=== PATIENT | male | born 1960 | race African-American/Black ===

== ENCOUNTER 2016-08-14 13:49 | Emergency (ER) | payer SELFPAY ==
[~2016-08-14] VITALS: Ht 180.3 cm; Wt 106.0 kg
[2016-08-14] MEDS ORDERED: FLEXERIL10 MG PO (14:40)
[2016-08-14] MEDS ORDERED: CLEOCIN300 MG PO (17:00)
[2016-08-14 17:44] VITALS: BP 151/96
== END 2016-08-14 17:57 | disposition home or self-care (01) ==
LOC: EME 13:49
DX: L03.211 Cellulitis of face (principal)
CPT/HCPCS: 70487; 99281; 99283